=== PATIENT | female | born 2005 | race Two or more races ===

== ENCOUNTER 2025-10-02 18:47 | Emergency (ER) | payer MEDICAID, OTHER ==
[~2025-10-02] VITALS: Ht 162.6 cm; Wt 71.5 kg
[2025-10-02 18:51] VITALS: BP 143/87; PULSE 83; RESP 18; TEMP 98.1; O2SAT 100
== END 2025-10-03 02:39 | disposition left against medical advice (07) ==
LOC: ER 18:47
DX: S40.022A Contusion of left upper arm, initial encounter (principal); Z53.21 Procedure and treatment not carried out due to patient leaving prior to being seen by health care provider; X58.XXXA Exposure to other specified factors, initial encounter; Y93.89 Activity, other specified; Y92.89 Other specified places as the place of occurrence of the external cause; Y99.8 Other external cause status